=== PATIENT | male | born 1940 | race Caucasian/White ===

== ENCOUNTER → 2016-12-04 09:35 | Outpatient (CLI) | payer MEDICARE, BC | END | disposition home or self-care (01) | LOC: D.MRI 09:35 | DX: M54.2 Cervicalgia (principal) ==

== ENCOUNTER → 2017-08-21 09:59 | Outpatient (CLI) | payer MEDICARE, BC ==
--- NOTE | ~2017-08-21 | EC ---
PATIENT:MYLENE BRADLEY DATE OF SERVICE: 08/21/17 SEX: M MEDICAL RECORD: [id number] DATE OF : 38 LOCATION:[facility] AGE OF PATIENT: 76 ADMISSION DATE: 08/21/17 REFERRING PHYSICIAN: INTERPRETING PHYSICIAN: BRENDAN RODRIGUEZ MD ECHOCARDIOGRAM REPORT ECHO CHARGES 4 ECHO COMPLETE Date: CLINICAL DIAGNOSIS: TIA/CHEST PAIN/DYSPNEA ECHOCARDIOGRAPHIC MEASUREMENTS (adult normal given) AC root (d.<3.7cm) 3.4 cm LV Septum d (<1.2 cm> 1.0 cm Valve Excursion 1.8 cm LV Septum (systole) 1.54 cm Left Atria (s.<4.0cm> 2.9 cm LVPW d(<1.2cm) 1.3 cm RV (d.<2.3cm) 3.1 cm LVPW (sytole) 1.6 cm LV diastole(<5.6CM) 5.0 cm MV E-F(>70mm/sec) cm LV systole 3.1 cm LVOT Diameter 2.0 cm MV exc.(>10mm) 0.90 cm Est.ejection fraction (50-75%) % DOPPLER: LVIT cm/sec A 85.0 cm/sec E 94.0 cm/sec LA cm/sec RVSP 30 mmHg LVOT 99 cm/sec AOP1/2T m/s Asc. Ao 128 cm/sec RVOT 64 cm/sec RA cm/sec PA 96 cm/sec AV Gradient Peak 6.51 mmHg AV Mean 3.24 mmHg AV Area 1.9 cm MV Gradient Peak 3.36 mmHg MV Mean 1.26 mmHg MV Area cm COMMENTS: Trim Setter Helper: 2 RAMANA COPPOLA [employer] Supervisor: 4 Dr. Rodriguez TAPE# PACS Pericardial Effusion N DATE OF SERVICE: PROCEDURE: Transthoracic echocardiogram. FINDINGS: 1. The left ventricle shows mild left ventricular hypertrophy. Inflow characteristics are normal. There are no significant regional wall motion abnormalities. The patient did have relative bradycardia throughout the study. Ejection fraction is 55%. 2. The mitral valve structurally appears to be normal with mild mitral ECHOCARDIOGRAM REPORT [id number] MYLENE BRADLEY regurgitation. 3. Aortic valve is normal. 4. The left atrium is normal size, normal function. 5. The right ventricle is normal size, normal function. 6. The right atrium is normal size, normal function. CONCLUSIONS: The patient has normal LV systolic function, mild dilatation of right-sided structures, relative bradycardia, otherwise normal echocardiogram for age. TRANSINT:[id number] Voice Confirmation ID: [id number] DOCUMENT ID: [id number] BRENDAN RODRIGUEZ MD at 1426 CC: [id number] DICTATION DATE: 08/26/17 0734 TRAFFIC OFFICER: 08/26/17 0959 [facility] CLI 08/21/[address] [address]
[~2017-08-21 09:59] MED LIST: ASPIRIN325 MG PO; CRANBERRY 400 M1 TA1 PO; FISH OIL 1,0001 CA1 PO; LIPITOR40 MG PO; LISINOPRIL5 MG PO; NITROSTAT0.4 MG SL; VITAMIN B-12500 MC1 PO
[2017-10-02 07:28] VITALS: BMI 25.1
== END | disposition home or self-care (01) ==
LOC: D.ECHO 09:59
DX: G45.9 Transient cerebral ischemic attack, unspecified (principal); R07.9 Chest pain, unspecified; R06.00 Dyspnea, unspecified; M54.2 Cervicalgia

== ENCOUNTER 2017-09-04 06:59 | Outpatient (CLI) | payer MEDICARE, BC ==
[~2017-09-04] VITALS: Ht 185.4 cm; Wt 81.8 kg
--- NOTE | ~2017-09-04 | HEMODYNAMI ---
PATIENT:MYLENE BRADLEY MEDICAL RECORD: [id number] : 38 LOCATION:[facility] ADMISSION DATE: 09/04/17 Generatedon:09/04/20179:52 Patient name: MYLENE BRADLEY Patient #: [id number] : 1940 Date of study: 09/04/2017 Page: Of Hemodynamic Procedure Report Patient Data Patient Demographics Procedure consent was obtained First Name: MYLENE Gender: Male Last Name: MIRNA : 1940 Patient #: [id number] Age: 76 year(s) Race: SSN: [id number] Additional ID: [id number] Contact details Address: [place] [address] State: [place] City: [place] Zip code: [address] Past Medical History Allergies: No known allergies Admission Admission Data Admission Date: 09/04/2017 Admission Time: 6:59 Procedure Procedure Types Cath Procedure Diagnostic Procedure LHC LHC w/Coronaries Sedation Charges Moderate Sedation up to 15 minutes Procedure Description Procedure Date Procedure Date: 09/04/2017 Procedure Start Time: 9:39 Procedure End Time: 9:50 Procedure Staff Name Function Alfred Younger MD Performing Physician Patti Valdovinos RT Monitor Michelle Silva RN Nurse Hien Bah RT Scrub Procedure Data Cath Procedure Fluoroscopy Diagnostic fluoroscopy Total fluoroscopy Time: 2.9 time: 2.9 min min Diagnostic fluoroscopy Total fluoroscopy dose: 544 dose: 544 mGy mGy Contrast Material Contrast Material Type Amount (ml) Isovue 300 51 Entry Location Entry Primary Successful Side Size Upsize Upsize Entry Closure Umana ccessful Closure Location (Fr) 1 (Fr) 2 (Fr) Remarks Device Remarks Radial Right 6 Fr Mechanical artery Short Compression Estimated blood loss: 5 ml Diagnostic catheters Device Type Used For End Catheter Placement DIAGNOSTIC Jenkins 110cm 5 Multi-vessel Fr catheter ([id number]) Angiography Procedure Complications No complications Procedure Medications Medication Administration Route Dosage Oxygen NC 2 l/min Lidocaine 2% added to field 20 Heparin Flush Bag added to field 2 bags (1000units/500ml NS) 0.9% NaCl I.V. 100 ml/hr Versed I.V. 1 mg Fentanyl I.V. 25 mcg Radial Cocktail I.A. 1 syringe (Verapomil 2mg/Nitro 400mcg/Heparin 1500units) Hemodynamics Rest Heart Rate: 53 (bpm) Pressure Samples Time Site Value (mmHg) Purpose Heart Use Rate(bpm) 9:43 LV 133/4,15 EDP 59 9:44 AO 135/72(98) Pullback 66 Gradients Valve Time Site Site 2 Mean SEP/DFP Peak To Heart Use 1 (mmHg) (sec/min) Peak Rate (mmHg) (bpm) Aortic 9:44 LV AO 5 12 66 135/72(98) Calculations Valve P-P Mean Valve Index Valve Source Name Gradient Area Flow (cm2) Aortic 5 5 Snapshots Pre Cath Intra NCS Post Cath Vital Signs Time Heart Resp SPO2 etCO2 NIBP (mmHg) Rhythm Pain Sedation Rate (ipm) (%) (mmHg) Status Level (bpm) 9:13:20 53 17 99 38.1 163/90(146) NSR 0 (11) 10(A) , No pain 9:17:40 54 18 96 20.9 137/77(99) NSR 0 (11) 10(A) , No pain 9:21:54 61 18 95 27.6 137/77(100) NSR 0 (11) 10(A) , No pain 9:26:08 63 18 94 38.1 137/74(100) NSR 0 (11) 10(A) , No pain 9:30:24 61 16 96 30 131/76(113) NSR 0 (11) 9(A) , No pain 9:34:36 62 19 94 38.1 132/73(102) NSR 0 (11) 9(A) , No pain 9:38:48 61 18 94 38.1 120/74(92) NSR 0 (11) 9(A) , No pain 9:43:04 85 18 93 35.9 135/77(118) NSR 0 (11) 9(A) , No pain 9:47:16 61 17 95 37.3 133/77(104) NSR 0 (11) 10(A) , No pain Medications Time Medication Route Dose Verified Delivered Reason Notes E ffectiveness by by 9:11:44 Oxygen NC 2 l/min Alfred Buffie used for Carisa Silva RN procedure MD 9:11:51 Lidocaine 2% added 20ml Alfred Alfred for local to vial Carisa Younger MD anesthetic field MD 9:11:56 Heparin Flush added 2 bags Alfred Alfred used for Bag to Carisa Younger MD procedure (1000units/500ml field NS) 9:12:04 0.9% NaCl I.V. 100 Alfred Buffie Per ml/hr Carisa Silva RN physician MD 9:24:35 Versed I.V. 1 mg Alfred Buffie for sedation Carisa Silva RN, MD 9:24:40 Fentanyl I.V. 25 mcg Alfred Buffie for sedation Carisa Silva RN, MD 9:42:48 Radial Cocktail I.A. 1 Alfred Alfred for (Verapomil syringe Carisa Younger MD vasodilation 2mg/Nitro MD 400mcg/Heparin 1500units) Procedure Log Time Note 9:02:31 Informed consent obtained and on chart 9:02:39 Diagnostic Cath Status : Elective 9:03:11 Patti Valdovinos RT(R) sent for patient. Start room use. 9:03:12 Time tracking: Regular hours 9:03:15 Plan of Care:Hemodynamics will remain stable., Cardiac rhythm will remain stable., Comfort level will be maintained., Respiratory function will remain adequate., Patient/ family verbilizes understanding of procedure., Procedure tolerated without complication., Recovers from procedure without complications.. 9:11:44 Oxygen 2 l/min NC was administered by Michelle Silva RN; used for procedure; 9::51 Lidocaine 2% 20ml vial added to field was administered by Alfred Younger MD; for local anesthetic; 9:11:56 Heparin Flush Bag (1000units/500ml NS) 2 bags added to field was administered by Alfred Younger MD; used for procedure; 9:12:04 0.9% NaCl 100 ml/hr I.V. was administered by Michelle Silva RN; Per physician; 9:12:06 Patient received from Pre/Post Procedure Room to [facility] 2 Alert and oriented. Tansferred to table in Supine position. 9:12:08 Warm blankets applied, and santo hugger turned on for patient comfort. 9:12:08 Vital chart was started 9:12:08 Correct patient and procedure confirmed by team. 9:12:09 ECG and BP/O2 sat monitors applied to patient. 9:12:11 Baseline sample Acquired. 9:12:14 Rhythm: sinus rhythm 9:12:16 Full Disclosure recording started 9:12:29 H&P Date Dictated: 09/03/2017 Within 30 days and on chart., H&P Addendum completed by physician on day of procedure. (MUST COMPLETE FOR ALL OUTPATIENTS). 9:12:30 Pre-procedure instructions explained to patient. 9:12:30 Pre-op teaching completed and patient verbalized understanding. 9:12:32 Family in patients room. 9:12:33 Patient NPO since Midnight. 9:12:59 Patient allergic to No known allergies 9:13:00 Is the patient allergic to Iodine/contrast media? No. 9:13:02 Is patient on blood thinner?Yes 9:13:04 ACC The patient was administered the following blood thiners within the last 24 hours: ACCPlavix 9:13:05 Patient diabetic? No. 9:13:07 Previous problem with sedation/anesthesia? No ? 9:13:09 Snore? Yes 9:13:09 Sleep apnea? Yes 9:13:10 Deviated septum? No 9:13:11 Opens mouth fully? Yes 9:13:11 Sticks out tongue? Yes 9:13:14 Airway obstruction? No ? 9:13:19 Dentures? No ? 9:13:22 Modified Ariel's test Ulnar < 7 seconds 9:13:23 Patient pain scale 0/10 ?. 9:13:36 IV patent on arrival in left forearm with 0.9% NaCl at KVO. 9:14:10 Lab results completed and on chart. 9:14:12 Right Radial & Right Groin area was prepped with chlora-prep and draped in sterile fashion 9:14:13 Alarms reviewed by R. N. 9:14:13 Sharps counted by scrub and verified by R.N. 9:14:15 Use device set Radial Dx or PCI 9:14:16 ACIST Syringe (42361) opened to sterile field. 9:14:17 Medline Cath Pack ([id number]) opened to sterile field. 9:14:18 MBrace Wrist Support ([id number]) opened to sterile field. 9:14:19 Tegaderm 4 x 4 (1626W) opened to sterile field. 9:14:19 ACIST Manifold (48462) opened to sterile field. 9:14:20 ACIST Hand Control (10284) opened to sterile field. 9:14:21 Bag Decanter (2001S) opened to sterile field. 9:14:24 DIAGNOSTIC WIRE .035 260cm J wire (628462) opened to sterile field. 9:14:40 SHEATH 6Fr Prelude Radial ([id number]) opened to sterile field. 9:22:48 Physician arrived 9::48 --------ALL STOP TIME OUT------ 9::49 Final Timeout: patient, procedure, and site verified with staff and physician. All members of the team are in agreement. 9:22:51 Right Radial & Right Groin site verified by team. 9:22:59 Physical assessment completed. ASA score P 2 - A patient with mild systemic disease as per Alfred Younger MD. 9:23:02 Sedation plan: IV Moderate Sedation Medication:Versed, Fentanyl 9:24:35 Versed 1 mg I.V. was administered by Michelle Silva RN; for sedation; 9:24:40 Fentanyl 25 mcg I.V. was administered by Michelle Silva RN; for sedation; 9:25:29 Zero performed for pressure channel P1 9:38:55 Procedure started. 9:39:00 Local anesthetic to right radial artery with Lidocaine 2% by Alfred Younger MD.INITIAL ACCESS ONLY 9:39:04 Access obtained with 4Fr micropunture. 9:41:08 A 6 Fr Short sheath was inserted into the Right Radial artery 9:41:16 A DIAGNOSTIC Jenkins 110cm 5 Fr catheter ([id number]) was advanced over the wire and used for Multi-vessel Angiography. 9:42:48 Radial Cocktail (Verapomil 2mg/Nitro 400mcg/Heparin 1500units) 1 syringe I.A. was administered by Alfred Younger MD; for vasodilation; 9:43:41 LV hemodynamics recorded. 9:43:42 LV gram done using FORTUNE 9:43:44 EF : 55 % 9:43:45 Injector settings: Ml/sec: 5, Volume: 15, 9:44:24 RCA angiography performed. 9:44:30 Injector settings: Ml/sec: 3, Volume: 6\, 9:45:41 LCA angiography performed. 9:45:45 Injector settings: Ml/sec: 3, Volume: 6, 9:47:25 Catheter removed. 9:47:30 TR BAND Standard ([id number]) opened to sterile field. 9:47:43 Sheath removed intact; hemostasis achieved with Mechanical Compression to the Right Radial artery. 9:49:01 Procedure ended.(Physican Out) 9:49:30 Fluoroscopy time 02.90 minutes. 9:49:33 Fluoroscopy dose: 544 mGy 9:49:33 Flurop Dose total: 544 9:49:37 Contrast amount:Isovue 300 51ml. 9:49:38 Sharps counted by scrub and verified by R.N. 9:49:44 TR band inflated with 10cc of air. 9:49:45 Insertion/operative site no bleeding no hematoma. 9:49:49 Post right radial artery:stable 9:49:50 Post Procedure Pulses reassessed and unchanged 9:49:52 Post procedure rhythm: unchanged. 9:49:55 Estimated blood loss: 5 ml 9:49:56 Post procedure instruction explained to patient.Patient verbalizes understanding. 9:49:57 Patient needs reinforcement of post procedure teaching. 9:50:29 Procedure type changed to Cath procedure, Diagnostic procedure, LHC, LHC w/Coronaries, Sedation Charges, Moderate Sedation up to 15 minutes 9:50:30 Procedure and supply charges have been captured, reviewed, submitted and are correct. 9:50:34 Procedure Complication : No complications 9:50:35 Vital chart was stopped 9:50:36 See physician's report for complete and final results. 9:50:40 Report given to Pre/Post Procedure Room. 9:50:42 Patient transfered to Pre/Post Procedure Room with Stretcher. 9:50:44 Procedure ended. 9:50:44 Full Disclosure recording stopped 9:50:49 End room use (Document Last) Device Usage Item Name Manufacture Quantity Catalog Number Hospital Part Current M inimal Lot# / Charge Number Stock Stock Serial# Code ACIST Syringe Acist 1 [id number] 366163 228374 568555 2 0 (89379) moneymeets Medline Cath Cardinal 1 [id number] 648643 99221 845133 5 [facility] makerist ([id number]) MBrace Wrist Advanced 1 140-0250-00 694146 67928 358028 5 Support Vascular ([id number]) Dynamics Tegaderm 4 x 4 3M 1 1626W 565364 586923 613294 5 (1626W) ACIST Manifold Acist 1 08412 040993 039480 614863 5 (41666) Medical Systems Inc ACIST Hand Acist 1 86911 731594 849322 063068 5 Control (44089) Medical Systems Inc Bag Decanter Microtek 1 2002S 846366 12533 093226 5 (2002S) Medical Inc. DIAGNOSTIC WIRE [place] 1 230182 155727 992604 059604 3 0 .035 260cm J wire (368487) SHEATH 6Fr Merit 1 [id number] 904183 013281 856079 5 Prelude Radial Medical ([id number]) DIAGNOSTIC Terumo 1 32-0688 776233 267777 416934 5 Jenkins 110cm 5 Fr catheter (774085) TR BAND Terumo 1 [id number] 005615 585382 274481 4 0 Standard ([id number]) Signature Audit [place] Stage Time Signature Unsigned Intra-Procedure 09/04/2017 Patti Valdovinos 9:51:56 AM RT(R) Signatures Monitor : Patti Valdovinos RT Signature : Date : Time : [address] [address]
[2017-09-04] MEDS ORDERED: ASPIRIN325 MG PO (07:48)
[2017-09-04] MEDS ORDERED: FISH OIL 1,0001 CA1 PO (07:48)
[2017-09-04 07:59] VITALS: BP 163/85; Ht 185.4 cm; Wt 81.8 kg
[2017-09-04 08:02] LABS: BASOPHILS 0.3 % (0-2); EOSINOPHILS 6.2 % (0-7); HEMATOCRIT 44.8 % (42.0-54.0); HEMOGLOBIN 15.8 g/dL (13.5-17.5); IMMATURE GRANULOCYTES 0.3 % (0-5); LYMPHOCYTES 34.6 % (15-50); MCH 34.1 pg (26.0-34.0); MCHC 35.3 g/dL (31.0-37.0); MCV 96.8 fL (80.0-100.0); MEAN PLATELET VOLUME 10.5 fL (7.4-10.4); NEUTROPHILS 49.6 % (40-80); PLATELET COUNT 146 10x3/uL (130-400); RBC 4.63 10x6/uL (4.20-6.10); RDW 13.2 % (11.5-14.5); WBC 6.5 10x3/uL (4.8-10.8)
[2017-09-04 08:19] LABS: ANION GAP 13.9 mmol/L (8-16); CALCIUM 8.9 mg/dL (8.5-10.1); CARBON DIOXIDE 25.9 mmol/L (21.0-32.0); CREATININE - SERUM 1.2 mg/dL (0.6-1.3); POTASSIUM - SERUM 3.8 mmol/L (3.5-5.1)
== END 2017-09-04 12:05 | disposition home or self-care (01) ==
LOC: D.CATH 06:59
PROVIDERS: Internal Medicine Cardiovascular Disease
DX: I25.10 Atherosclerotic heart disease of native coronary artery without angina pectoris (principal); R00.1 Bradycardia, unspecified; Z01.812 Encounter for preprocedural laboratory examination

== ENCOUNTER 2017-10-02 06:42 | Outpatient (CLI) | payer MEDICARE, BC ==
[~2017-10-02] VITALS: Ht 185.4 cm; Wt 86.4 kg
--- NOTE | ~2017-10-02 | HEMODYNAMI ---
PATIENT:MYLENE BRADLEY MEDICAL RECORD: [id number] : 38 LOCATION:[facility] ADMISSION DATE: 10/02/17 Generatedon:10/02/20178:42 Patient name: MYLENE BRADLEY Patient #: [id number] : 1940 Date of study: 10/02/2017 Page: Of Hemodynamic Procedure Report Patient Data Patient Demographics Procedure consent was obtained First Name: MYLENE Gender: Male Last Name: MIRNA : 1940 Patient #: [id number] Age: 76 year(s) Race: SSN: [id number] Additional ID: [id number] Contact details Address: [place] [address] State: [place] City: [place] Zip code: [address] Past Medical History Allergies: No known allergies Admission Admission Data Admission Date: 10/02/2017 Admission Time: 6:42 Arrival Date: 10/02/2017 Arrival Time: 0:00 Admit Source: Other Insurance Payor: Medicare Height (in.): 72.83 BSA: 2.1 (m2) Height (cm.): 185 BMI: 25.13 (kg/m2) Weight (lbs.): 189.6 Weight (kg.): 86 Lab Results Lab Result Date: 10/02/2017 Lab Result Time: 0:00 Biochemistry Name Units Result Min Max BUN mg/dl 18 --(---*)-- 7 18 Creatinine mg/dl 1.2 --(---*)-- 0.6 1.3 CBC Name Units Result Min Max Hemoglobin g/dl 15.8 --(--*-)-- 13.5 17.5 Procedure Procedure Types Cath Procedure Diagnostic Procedure PPM/ICD Loop Recorder Implant Procedure Description Procedure Date Procedure Date: 10/02/2017 Procedure Start Time: 8:34 Procedure End Time: 8:41 Procedure Staff Name Function Alfred Younger MD Performing Physician Hien Bah RT Monitor Andrea Nina RN Nurse Patti Valdovinos RT Scrub Michelle Silva RN Nurse Procedure Data Cath Procedure Estimated blood loss: 2 ml Procedure Complications No complications Procedure Medications Medication Administration Route Dosage Lidocaine 1% added to field 20 Ancef (1Gm/50ml NS) I.V.P.B 1 g Versed I.V. 2 mg Hemodynamics Rest BSA: 2.1 (m2) HGB: 15.8 (g/dl) O2 Consumption: Estimated: 230.51 (ml/min) O2 Consumption indexed: Estimated:109.77 (ml/min/m) Heart Rate: 57 (bpm) Snapshots Pre Cath Intra NCS Post Cath Vital Signs Time Heart Resp SPO2 etCO2 NIBP (mmHg) Rhythm Pain Sedation Rate (ipm) (%) (mmHg) Status Level (bpm) 8:26:26 59 16 99 0 148/79(0) SB 0 (11) 10(A) , No pain 8:21:40 63 17 98 0 151/84(131) SB 0 (11) 10(A) , No pain 8:32:06 61 12 98 0 150/84(135) SB 0 (11) 10(A) , No pain 8:38:32 58 10 98 0 155/80(121) SB 0 (11) 10(A) , No pain Medications Time Medication Route Dose Verified Delivered Reason Notes Effective ness by by 8:17:50 Lidocaine added 20ml Alfred Alfred for local 1% to vial Carisa Younger MD anesthetic field MD 8:18:03 Ancef I.V.P.B 1 g Alfred Buffie used for (1Gm/50ml Carisa Silva RN procedure NS) 8:32:47 Versed I.V. 2 mg Alfred Buffie for Carisa Silva RN sedation Procedure Log Time Note 7:39:26 Diagnostic Cath Status : Elective 7:39:47 Hien Bah RT(R) sent for patient. Start room use. 7:39:49 Time tracking: Regular hours (M-F 7:00 - 5:00) 7:39:54 Plan of Care:Hemodynamics will remain stable., Cardiac rhythm will remain stable., Comfort level will be maintained., Respiratory function will remain adequate., Patient/ family verbilizes understanding of procedure., Procedure tolerated without complication., Recovers from procedure without complications.. 7:59:30 Arrival Date: 10/02/2017 12:00:00 AM 7:59:31 Admit Source: Other 7:59:39 Insurance Payor : Medicare 8:06:09 Lab Result : BUN 18 mg/dl 8:06:09 Lab Result : Hemoglobin 15.8 g/dl 8:06:09 Lab Result : Creatinine 1.2 mg/dl 8:12:26 Patient received from Pre/Post Procedure Room to [facility] 2 Alert and oriented. Tansferred to table in Supine position. 8:12:27 Warm blankets applied, and santo hugger turned on for patient comfort. 8:12:27 Correct patient and procedure confirmed by team. 8:12:29 Signed procedure consent form obtained from patient. 8:12:31 ECG and BP/O2 sat monitors applied to patient. 8:12:37 Vital chart was started 8:12:38 Baseline sample Acquired. 8:12:51 Rhythm: sinus rhythm 8:12:53 Full Disclosure recording started 8:12:58 H&P Date Dictated: 10/02/2017 Within 30 days and on chart., H&P Addendum completed by physician on day of procedure. (MUST COMPLETE FOR ALL OUTPATIENTS). 8:13:01 Pre-procedure instructions explained to patient. 8:13:02 Pre-op teaching completed and patient verbalized understanding. 8:13:07 Family in patients room. 8:13:09 Patient NPO since Midnight. 8:13:10 Is the patient allergic to Iodine/contrast media? No. 8:13:11 Was the patient premedicated? No 8:13:12 Is patient on blood thinner?No 8:13:13 Patient diabetic? No. 8:13:16 Previous problem with sedation/anesthesia? No ? 8:13:17 Snore? Yes 8:13:18 Sleep apnea? Yes 8:13:19 Deviated septum? No 8:13:21 Opens mouth fully? Yes 8:13:22 Sticks out tongue? Yes 8:13:24 Airway obstruction? No ? 8:13:27 Dentures? No ? 8:13:31 Pre procedure: right dorsailis pedis pulse 2+ Normal; easily identifiable; not easily obliterated 8:13:33 Pre procedure: left dorsailis pedis pulse 2+ Normal; easily identifiable; not easily obliterated 8:13:36 Patient pain scale 0/10 ?. 8:13:43 IV patent on arrival in left hand with 0.9% NaCl at [facility]. 8:13:47 Lab results completed and on chart. 8:13:54 Left chest area was prepped with chlora-prep and draped in sterile fashion 8:13:55 Alarms reviewed by R. N. 8:13:56 Sharps counted by scrub and verified by R.N. 8:17:50 Lidocaine 1% 20ml vial added to field was administered by Alfred Younger MD; for local anesthetic; 8:18:03 Ancef (1Gm/50ml NS) 1 g I.V.P.B was administered by Michelle Silva RN; used for procedure; 8:27:46 Patient Height : 72.83 inches 8:27:51 Patient Weight : 189.6 lbs 8:31:08 Physician arrived 8:31:08 --------ALL STOP TIME OUT------ 8:31:11 Final Timeout: patient, procedure, and site verified with staff and physician. All members of the team are in agreement. 8:31:15 Left chest site verified by team. 8:31:21 Physical assessment completed. ASA score P 2 - A patient with mild systemic disease as per Alfred Younger MD. 8:31:26 Sedation plan: IV Moderate Sedation Medication:Versed 8:32:47 Versed 2 mg I.V. was administered by Michelle Silva RN; for sedation; 8:33:48 Procedure started. 8:34:23 Medtronic sales and service representative Pinky present for procedure. 8:34:37 Lidocaine 1% was administered to mid chest by Alfred Younger MD . 8:34:40 Incision made to mid chest. 8:34:44 Generator pocket made/opened. 8:35:29 Linq was inserted and sutured with staple 8:36:02 Mid Chest incision was dressed with Mepilex dressing. 8:36:11 Procedure ended.(Physican Out) 8:36:43 Insertion/operative site no bleeding no hematoma. 8:36:46 Post Procedure Pulses reassessed and unchanged 8:37:01 Post procedure rhythm: unchanged. 8:37:06 Estimated blood loss: 2 ml 8:37:12 Post procedure instruction explained to patient.Patient verbalizes understanding. 8:37:31 Procedure and supply charges have been captured, reviewed, submitted and are correct. 8:37:57 Medtronic Linq Loop Recorder opened to sterile field. 8:38:09 Use device set Femoral Dx 8:38:46 Mepilex Dressing ([id number]) opened to sterile field. 8:40:47 Stapler Skin 35W Proximate Plus (PMW35) opened to sterile field. 8:41:28 Procedure Complication : No complications 8:41:34 Vital chart was stopped 8:41:48 See physician's report for complete and final results. 8:41:50 Report given to Pre/Post Procedure Room. 8:41:53 Patient transfered to Pre/Post Procedure Room with Stretcher. 8:41:54 Procedure ended. 8:41:54 Full Disclosure recording stopped 8:41:57 End room use (Document Last) Device Usage Item Name Manufacture Quantity Catalog Hospital Part Current Minimal Lot# / Number Charge Number Stock Stock Serial# Code Medtronic Medtronic 1 [id number] [id number] [id number] [id number] 5 [id number] 829S Linq Loop Recorder Mepilex Cardinal 1 102051 654352 396062 361062 5 Dressing Health (000844) Stapler Unknown 1 PMW35 592967 596389 410485 5 Skin 35W Proximate Plus (PMW35) Signature Audit [place] Stage Time Signature Unsigned Intra-Procedure 10/02/2017 Hien Bah 8:42:42 AM RT(R) Signatures Monitor : Hien Bah Signature : RT Date : Time : [id number] [place] [address]
[~2017-10-02 06:42] MED LIST changes: -CRANBERRY 400 M1 TA1 PO; -LIPITOR40 MG PO; -LISINOPRIL5 MG PO; -NITROSTAT0.4 MG SL; -VITAMIN B-12500 MC1 PO
[2017-10-02] MEDS ORDERED: LISINOPRIL5 MG PO (07:19)
[2017-10-02] MEDS ORDERED: LIPITOR40 MG PO (07:19)
[2017-10-02] MEDS ORDERED: NITROSTAT0.4 MG SL (07:19)
[2017-10-02] MEDS ORDERED: CRANBERRY 400 M1 TA1 PO (07:20)
[2017-10-02] MEDS ORDERED: VITAMIN B-12500 MC1 PO (07:20)
[2017-10-02 07:28] VITALS: BP 163/91; Ht 185.4 cm; Wt 86.4 kg
== END 2017-10-02 10:30 | disposition home or self-care (01) ==
LOC: D.CATH 06:42
DX: R55 Syncope and collapse (principal); Z01.812 Encounter for preprocedural laboratory examination

== ENCOUNTER → 2017-12-09 18:07 | Outpatient (CLI) | payer MEDICARE, BC ==
[2017-10-02 07:28] VITALS: BMI 25.1
[~2017-12-09 18:07] MED LIST changes: +CRANBERRY 400 M1 TA1 PO; +LIPITOR40 MG PO; +LISINOPRIL5 MG PO; +NITROSTAT0.4 MG SL; +VITAMIN B-12500 MC1 PO
[2017-12-09 19:40] LABS: CHOL - HDL RATIO 2.5 ratio (2.3-4.9); LDL-HDL RATIO 1.1 ratio (1.5-3.5)
== END | disposition home or self-care (01) ==
LOC: D.LABREF 18:07
PROVIDERS: Internal Medicine Cardiovascular Disease
DX: E78.5 Hyperlipidemia, unspecified (principal)